=== PATIENT | female | born 1965 | race Caucasian/White ===

== ENCOUNTER 2018-06-13 11:32 | Emergency (ER) | payer OTHER ==
[~2018-06-13] VITALS: Ht 165.1 cm; Wt 74.1 kg
[~2018-06-13 11:32] MED LIST: ALBU6.7H INH; ALPR-624 PO; BUPR-94 PO; CARI350T PO; TRAZ150T78 PO
[2018-06-13 11:40] VITALS: BP 141/85
== END 2018-06-13 12:32 | disposition home or self-care (01) ==
LOC: ER 11:33
DX: M79.672 Pain in left foot (principal); I25.10 Atherosclerotic heart disease of native coronary artery without angina pectoris; I10 Essential (primary) hypertension; J45.909 Unspecified asthma, uncomplicated; K21.9 Gastro-esophageal reflux disease without esophagitis; G89.29 Other chronic pain; M54.9 Dorsalgia, unspecified; Z90.710 Acquired absence of both cervix and uterus; Z88.6 Allergy status to analgesic agent; Z88.8 Allergy status to other drugs, medicaments and biological substances
CPT/HCPCS: 73630; 99284; L4360

== ENCOUNTER 2018-06-28 10:10 | Outpatient (CLI) | payer OTHER ==
[2018-06-28 10:38] LABS: BASOPHILS % (AUTO) 0.4 % (0-1); EOSINOPHILS # (AUTO) 0.2 X10'3 (0-0.9); EOSINOPHILS % (AUTO) 2.1 % (0-6); HEMATOCRIT 39.8 % (35.0-45.0); HEMOGLOBIN 13.4 g/dl (12.0-16.0); LYMPHOCYTES # (AUTO) 2.4 X10'3 (1.1-4.8); LYMPHOCYTES % (AUTO) 30.5 % (21-51); MEAN CORPUSCULAR HEMOGLOBIN 29.5 PG (27.0-31.0); MEAN CORPUSCULAR HGB CONC 33.8 % (33.0-36.5); MEAN CORPUSCULAR VOLUME 87.4 FL (78-98); MEAN PLATELET VOLUME 6.8 FL (7.4-10.4); MONOCYTES # (AUTO) 0.6 X10'3 (0-0.9); MONOCYTES % (AUTO) 7.1 % (2-12); NEUTROPHILS # (AUTO) 4.8 X10'3 (1.8-7.7); NEUTROPHILS % (AUTO) 59.9 % (42-75); PLATELET COUNT 309 X10'3 (140-440); RED BLOOD COUNT 4.56 X10'6 (4.20-5.60); RED CELL DISTRIBUTION WIDTH 14.2 % (11.5-14.5)
[2018-06-28 11:09] LABS: ALANINE AMINOTRANSFERASE 17 U/L (12-78); ALBUMIN 3.5 G/DL (3.4-5.0); ALKALINE PHOSPHATASE 66 IU/L (46-116); ANION GAP 9 (8-16); ASPARTATE AMINO TRANSFERASE 17 U/L (10-37); BILIRUBIN,TOTAL 0.6 MG/DL (0.1-1.0); BLOOD UREA NITROGEN 13 MG/DL (7-18); BUN/CREATININE RATIO 15.7 (6.6-38.0); CALCIUM 8.4 MG/DL (8.5-10.1); CHLORIDE 102 MMOL/L (99-107); CHOL/HDL RATIO 3.7 (0.00-4.99); CHOLESTEROL 238 MG/DL (0-200); CREATININE 0.83 MG/DL (0.40-0.90); GLUCOSE 101 MG/DL (70-104); HDL CHOLESTEROL 65 MG/DL (35-60); LDL CHOLESTEROL 147 MG/DL (50-100); POTASSIUM 4.4 MMOL/L (3.5-5.1); SODIUM 138 MMOL/L (135-145); TOTAL CARBON DIOXIDE 27.4 MMOL/L (24-32); TOTAL PROTEIN 6.9 G/DL (6.4-8.2); TRIGLYCERIDES 127 MG/DL (20-135); eGFR 72 ML/MIN
== END 2018-06-28 23:59 | disposition home or self-care (01) ==
LOC: VAS 10:10
PROVIDERS: ATTEND Nurse Practitioner Family
DX: M79.672 Pain in left foot (principal); I10 Essential (primary) hypertension; R53.83 Other fatigue; R20.2 Paresthesia of skin; R51 Headache; J45.909 Unspecified asthma, uncomplicated; Z87.891 Personal history of nicotine dependence; Z90.710 Acquired absence of both cervix and uterus
CPT/HCPCS: 36415; 73630; 80053; 80061; 82306; 84443; 85025; 93922; 93925

== ENCOUNTER 2018-08-30 14:44 | Outpatient (CLI) | payer OTHER | END 2018-08-30 23:59 | disposition home or self-care (01) | LOC: RAD 14:44 | PROVIDERS: ATTEND Nurse Practitioner Family | DX: M25.571 Pain in right ankle and joints of right foot (principal); F32.9 Major depressive disorder, single episode, unspecified; J45.909 Unspecified asthma, uncomplicated; Z87.891 Personal history of nicotine dependence; Z90.710 Acquired absence of both cervix and uterus; Z91.048 Other nonmedicinal substance allergy status; Z88.5 Allergy status to narcotic agent; Z88.9 Allergy status to unspecified drugs, medicaments and biological substances | CPT/HCPCS: 73610; 73630 ==

== ENCOUNTER 2018-10-12 20:24 | Emergency (ER) | payer OTHER ==
[~2018-10-12] VITALS: Ht 165.1 cm; Wt 74.5 kg
[2018-10-12 21:26] VITALS: BP 137/101
[2018-10-12] MEDS ORDERED: ALBU8HFA PO (21:44)
[2018-10-12] MEDS ORDERED: BENZ-16 PO (21:44)
== END 2018-10-12 21:51 | disposition home or self-care (01) ==
LOC: EEVIPCON 20:24 → ER 20:24
DX: J22 Unspecified acute lower respiratory infection (principal); J20.9 Acute bronchitis, unspecified; I25.119 Atherosclerotic heart disease of native coronary artery with unspecified angina pectoris; I10 Essential (primary) hypertension; J45.909 Unspecified asthma, uncomplicated; K21.9 Gastro-esophageal reflux disease without esophagitis; G89.29 Other chronic pain; F41.9 Anxiety disorder, unspecified; F32.9 Major depressive disorder, single episode, unspecified; Z90.49 Acquired absence of other specified parts of digestive tract; Z88.5 Allergy status to narcotic agent; Z88.8 Allergy status to other drugs, medicaments and biological substances; Z79.899 Other long term (current) drug therapy; Z90.710 Acquired absence of both cervix and uterus
CPT/HCPCS: 99283

== ENCOUNTER 2018-11-16 13:07 | Emergency (ER) | payer OTHER ==
[~2018-11-16] VITALS: Ht 165.1 cm; Wt 70.5 kg
[~2018-11-16 13:07] MED LIST changes: +BENZ-16 PO
[2018-11-16 13:10] VITALS: BP 146/92
[2018-11-16] MEDS ORDERED: predniSONE 20 mg tablet PO ONE (13:30)
[2018-11-16] MEDS ORDERED: PRED50TA PO (13:36)
[2018-11-16] MEDS ORDERED: CEPH-572 PO (13:36)
[2018-11-18] MEDS ORDERED: ACYC-202 PO (14:05)
[2018-11-18] MEDS ORDERED: HYDR-3965 PO (14:05)
[2018-11-18] MEDS ORDERED: LIDO28.310 TOP (14:07)
== END 2018-11-16 13:43 | disposition home or self-care (01) ==
LOC: ER 13:07
DX: L98.8 Other specified disorders of the skin and subcutaneous tissue (principal); I25.10 Atherosclerotic heart disease of native coronary artery without angina pectoris; I10 Essential (primary) hypertension; J45.909 Unspecified asthma, uncomplicated; K21.9 Gastro-esophageal reflux disease without esophagitis; G89.29 Other chronic pain; Z90.49 Acquired absence of other specified parts of digestive tract; Z90.710 Acquired absence of both cervix and uterus; Z98.890 Other specified postprocedural states; Z88.5 Allergy status to narcotic agent; Z88.8 Allergy status to other drugs, medicaments and biological substances; Z79.2 Long term (current) use of antibiotics; Z79.899 Other long term (current) drug therapy
CPT/HCPCS: 99283; J7512

== ENCOUNTER 2018-11-29 14:17 | Emergency (ER) | payer OTHER ==
[~2018-11-29] VITALS: Ht 165.1 cm; Wt 71.0 kg
[~2018-11-29 14:17] MED LIST changes: +ACYC-202 PO; +HYDR-3965 PO; +LIDO28.310 TOP; +PRED50TA PO
[2018-11-29 14:48] VITALS: BP 143/101
[2018-11-29] MEDS ORDERED: ONDA4TAB6 PO (15:00)
[2018-11-29] MEDS ORDERED: VALA10002 PO (15:00)
== END 2018-11-29 15:07 | disposition home or self-care (01) ==
LOC: ER 14:17
DX: B02.9 Zoster without complications (principal); I10 Essential (primary) hypertension; I25.10 Atherosclerotic heart disease of native coronary artery without angina pectoris; J45.909 Unspecified asthma, uncomplicated; K21.9 Gastro-esophageal reflux disease without esophagitis; G89.29 Other chronic pain; M54.9 Dorsalgia, unspecified; Z90.710 Acquired absence of both cervix and uterus; Z90.49 Acquired absence of other specified parts of digestive tract; Z88.6 Allergy status to analgesic agent; Z88.8 Allergy status to other drugs, medicaments and biological substances
CPT/HCPCS: 99283

== ENCOUNTER 2019-03-09 15:36 | Outpatient (CLI) | payer OTHER ==
[~2019-03-09 15:36] MED LIST changes: -ACYC-202 PO; -HYDR-3965 PO; +ONDA4TAB6 PO; +VALA10002 PO
[2019-03-09 16:55] LABS: BASOPHILS # (AUTO) 0.1 X10'3 (0-0.2); BASOPHILS % (AUTO) 1.2 % (0-1); EOSINOPHILS # (AUTO) 0.1 X10'3 (0-0.9); EOSINOPHILS % (AUTO) 0.8 % (0-6); HEMATOCRIT 38.9 % (35.0-45.0); HEMOGLOBIN 13.1 g/dl (12.0-16.0); LYMPHOCYTES # (AUTO) 2.7 X10'3 (1.1-4.8); LYMPHOCYTES % (AUTO) 33.3 % (21-51); MEAN CORPUSCULAR HEMOGLOBIN 29.2 PG (27.0-31.0); MEAN CORPUSCULAR HGB CONC 33.8 g/dL (33.0-36.5); MEAN CORPUSCULAR VOLUME 86.6 FL (78-98); MEAN PLATELET VOLUME 7.1 FL (7.4-10.4); MONOCYTES # (AUTO) 0.7 X10'3 (0-0.9); NEUTROPHILS # (AUTO) 4.5 X10'3 (1.8-7.7); NEUTROPHILS % (AUTO) 55.7 % (42-75); PLATELET COUNT 349 X10'3 (140-440); RED BLOOD COUNT 4.49 X10'6 (4.20-5.60); RED CELL DISTRIBUTION WIDTH 15.2 % (11.5-14.5); WHITE BLOOD COUNT 8.1 X10'3 (4.5-11.0)
[2019-03-09 17:18] LABS: ALANINE AMINOTRANSFERASE 32 U/L (12-78); ALBUMIN 3.7 G/DL (3.4-5.0); ALKALINE PHOSPHATASE 55 IU/L (46-116); ANION GAP 10 (8-16); ASPARTATE AMINO TRANSFERASE 18 U/L (10-37); BILIRUBIN,TOTAL 0.4 MG/DL (0.1-1.0); BLOOD UREA NITROGEN 9 MG/DL (7-18); BUN/CREATININE RATIO 11.8 (6.6-38.0); C-REACTIVE PROTEIN 0.14 MG/DL (0.0-0.5); CALCIUM 8.3 MG/DL (8.5-10.1); CHLORIDE 103 MMOL/L (99-107); CHOL/HDL RATIO 2.7 (0.00-4.99); CHOLESTEROL 216 MG/DL (0-200); CREATININE 0.76 MG/DL (0.40-0.90); GLUCOSE 107 MG/DL (70-104); HDL CHOLESTEROL 81 MG/DL (35-60); LDL CHOLESTEROL 110 MG/DL (50-100); POTASSIUM 3.3 MMOL/L (3.5-5.1); SODIUM 139 MMOL/L (135-145); TOTAL CARBON DIOXIDE 26.5 MMOL/L (24-32); TOTAL PROTEIN 7.4 G/DL (6.4-8.2); TRIGLYCERIDES 105 MG/DL (20-135); eGFR 80 ML/MIN
[2019-03-11 08:14] LABS: HBSAG SCREEN Negative (Negative); HEP A AB, IGM Negative (Negative); HEP B CORE AB, IGM Negative (Negative); HEPATITIS C ANTIBODY <0.1 s/co ratio (0.0-0.9)
== END 2019-03-09 23:59 | disposition home or self-care (01) ==
LOC: LAB 15:36
DX: E55.9 Vitamin D deficiency, unspecified (principal); I10 Essential (primary) hypertension; B02.9 Zoster without complications; E78.5 Hyperlipidemia, unspecified; R63.4 Abnormal weight loss; R20.2 Paresthesia of skin; R53.83 Other fatigue; Z87.891 Personal history of nicotine dependence
CPT/HCPCS: 36415; 80053; 80061; 80074; 81479; 83891; 83892; 83894; 83898; 84443; 85025; 85651; 86140

== ENCOUNTER 2019-03-25 15:40 | Outpatient (CLI) | payer OTHER ==
[2019-03-25 16:22] LABS: BASOPHILS # (AUTO) 0.1 X10'3 (0-0.2); BASOPHILS % (AUTO) 0.9 % (0-1); EOSINOPHILS # (AUTO) 0.1 X10'3 (0-0.9); HEMATOCRIT 37.6 % (35.0-45.0); HEMOGLOBIN 12.6 g/dl (12.0-16.0); LYMPHOCYTES # (AUTO) 2.9 X10'3 (1.1-4.8); LYMPHOCYTES % (AUTO) 37.9 % (21-51); MEAN CORPUSCULAR HEMOGLOBIN 29.2 PG (27.0-31.0); MEAN CORPUSCULAR HGB CONC 33.6 g/dL (33.0-36.5); MEAN CORPUSCULAR VOLUME 86.8 FL (78-98); MEAN PLATELET VOLUME 6.7 FL (7.4-10.4); MONOCYTES # (AUTO) 0.7 X10'3 (0-0.9); MONOCYTES % (AUTO) 9.7 % (2-12); NEUTROPHILS # (AUTO) 3.9 X10'3 (1.8-7.7); NEUTROPHILS % (AUTO) 50.5 % (42-75); PLATELET COUNT 353 X10'3 (140-440); RED BLOOD COUNT 4.33 X10'6 (4.20-5.60); RED CELL DISTRIBUTION WIDTH 15.4 % (11.5-14.5); WHITE BLOOD COUNT 7.7 X10'3 (4.5-11.0)
[2019-03-25 16:39] LABS: ALANINE AMINOTRANSFERASE 23 U/L (12-78); ALBUMIN 3.5 G/DL (3.4-5.0); ALKALINE PHOSPHATASE 56 IU/L (46-116); ANION GAP 5 (8-16); ASPARTATE AMINO TRANSFERASE 16 U/L (10-37); BILIRUBIN,TOTAL 0.4 MG/DL (0.1-1.0); BLOOD UREA NITROGEN 10 MG/DL (7-18); BUN/CREATININE RATIO 9.7 (6.6-38.0); CALCIUM 8.2 MG/DL (8.5-10.1); CHLORIDE 105 MMOL/L (99-107); CREATININE 1.03 MG/DL (0.40-0.90); GLUCOSE 90 MG/DL (70-104); POTASSIUM 3.2 MMOL/L (3.5-5.1); SODIUM 139 MMOL/L (135-145); TOTAL CARBON DIOXIDE 28.9 MMOL/L (24-32); eGFR 56 ML/MIN
[2019-03-25 17:22] LABS: RHEUM FACTOR QUAL REFLEX TITER NEGATIVE (Neg)
[2019-03-27 08:09] LABS: THIIODOTHRONINE, FREE, SERUM 2.6 pg/mL (2.0-4.4); THYROID PEROXIDASE AB 8 IU/mL (0-34)
[2019-03-29 17:08] LABS: ANTINUCLEAR ANTIBODIES Negative (Negative)
== END 2019-03-25 23:59 | disposition home or self-care (01) ==
LOC: LAB 15:40
PROVIDERS: ATTEND Nurse Practitioner Family
DX: D43.0 Neoplasm of uncertain behavior of brain, supratentorial (principal); E83.50 Unspecified disorder of calcium metabolism; E23.0 Hypopituitarism; M79.643 Pain in unspecified hand; R63.4 Abnormal weight loss; R07.9 Chest pain, unspecified; I10 Essential (primary) hypertension
CPT/HCPCS: 36415; 80053; 84439; 84443; 84481; 85025; 85651; 86038; 86140; 86200; 86376; 86430

== ENCOUNTER 2019-08-08 15:49 | Outpatient (CLI) | payer OTHER ==
[~2019-08-08 15:49] MED LIST changes: -ALBU6.7H INH; +ALBU6.7H9 INH
[2019-08-08 16:41] LABS: BASOPHILS # (AUTO) 0.1 X10'3 (0-0.2); EOSINOPHILS # (AUTO) 0.1 X10'3 (0-0.9); EOSINOPHILS % (AUTO) 1.5 % (0-6); HEMATOCRIT 39.4 % (35.0-45.0); HEMOGLOBIN 13.1 g/dl (12.0-16.0); LYMPHOCYTES # (AUTO) 3.1 X10'3 (1.1-4.8); LYMPHOCYTES % (AUTO) 35.7 % (21-51); MEAN CORPUSCULAR HEMOGLOBIN 28.5 PG (27.0-31.0); MEAN CORPUSCULAR HGB CONC 33.1 g/dL (33.0-36.5); MEAN CORPUSCULAR VOLUME 85.9 FL (78-98); MEAN PLATELET VOLUME 6.6 FL (7.4-10.4); MONOCYTES # (AUTO) 0.8 X10'3 (0-0.9); MONOCYTES % (AUTO) 9.7 % (2-12); NEUTROPHILS # (AUTO) 4.5 X10'3 (1.8-7.7); NEUTROPHILS % (AUTO) 52.1 % (42-75); PLATELET COUNT 354 X10'3 (140-440); RED BLOOD COUNT 4.59 X10'6 (4.20-5.60); RED CELL DISTRIBUTION WIDTH 14.7 % (11.5-14.5); WHITE BLOOD COUNT 8.6 X10'3 (4.5-11.0)
[2019-08-08 17:06] LABS: ALANINE AMINOTRANSFERASE 27 U/L (12-78); ALBUMIN 3.5 G/DL (3.4-5.0); ALBUMIN/GLOBULIN RATIO 0.9 (1.1-1.5); ALKALINE PHOSPHATASE 66 IU/L (46-116); ANION GAP 8 (8-16); ASPARTATE AMINO TRANSFERASE 20 U/L (10-37); BILIRUBIN,TOTAL 0.2 MG/DL (0.1-1.0); BLOOD UREA NITROGEN 18 MG/DL (7-18); CALCIUM 8.7 MG/DL (8.5-10.1); CHLORIDE 106 MMOL/L (99-107); CHOL/HDL RATIO 3.1 (0.00-4.99); CHOLESTEROL 242 MG/DL (0-200); CREATININE 0.72 MG/DL (0.40-0.90); GLUCOSE 89 MG/DL (70-104); HDL CHOLESTEROL 77 MG/DL (35-60); LDL CHOLESTEROL 127 MG/DL (50-100); POTASSIUM 3.8 MMOL/L (3.5-5.1); SODIUM 143 MMOL/L (135-145); TOTAL CARBON DIOXIDE 28.6 MMOL/L (24-32); TOTAL PROTEIN 7.3 G/DL (6.4-8.2); TRIGLYCERIDES 169 MG/DL (20-135); eGFR 85 ML/MIN
[2019-08-08 17:20] LABS: RHEUM FACTOR QUAL REFLEX TITER NEGATIVE (Neg)
== END 2019-08-08 23:59 | disposition home or self-care (01) ==
LOC: RAD 15:49
PROVIDERS: ATTEND Family Medicine
DX: M19.042 Primary osteoarthritis, left hand (principal); M19.041 Primary osteoarthritis, right hand; R10.84 Generalized abdominal pain; K52.9 Noninfective gastroenteritis and colitis, unspecified; E78.5 Hyperlipidemia, unspecified; M79.7 Fibromyalgia
CPT/HCPCS: 36415; 73120; 80053; 80061; 85025; 85651; 86140; 86430